=== PATIENT | female | born 1985 | race Caucasian/White ===

== ENCOUNTER 2016-11-25 06:08 | Day surgery (SDC) | payer OTHER, SELFPAY ==
[2016-11-18 09:02] LABS: BASOPHILS 0.1 %; BASOPHILS ABSOLUTE 0.01 10/3/uL (0.0-0.16); EOSINOPHILS 3.3 %; EOSINOPHILS ABSOLUTE 0.22 10/3/uL (0.0-0.53); HEMATOCRIT 36.9 % (36.0-48.0); HEMOGLOBIN 12.3 g/dL (12.0-16.0); IMMATURE GRANULOCYTES 0.1 %; IMMATURE GRANULOCYTES ABSOLUTE 0.01 10/3/uL (0.0-0.11); LYMPHOCYTES 36.7 %; LYMPHOCYTES ABSOLUTE 2.48 10/3/uL (0.67-4.30); MEAN CORPUS HGB CONC 33.3 g/dL (32.0-36.0); MEAN CORPUSCULAR HEMOGLOB 29.4 pg (26.0-34.0); MEAN CORPUSCULAR VOLUME 88.3 fL (80-100); MEAN PLATELET VOLUME 9.9 fL (9.2-13.0); MONOCYTES 4.6 %; MONOCYTES ABSOLUTE 0.31 10/3/uL (0.21-1.20); NEUTROPHILS 55.2 %; NEUTROPHILS ABSOLUTE 3.73 10/3/uL (2.02-8.40); PLATELET COUNT 340 10/3/uL (150-400); RBC DISTRIBUTION WIDTH 13.1 % (12.0-16.0); RED CELL COUNT 4.18 10/6/uL (4.0-5.6); WHITE BLOOD CELLS 6.8 10/3/uL (4.5-10.5)
[2016-11-18 09:04] LABS: MANUAL DIFF NO %
[2016-11-18 09:19] LABS: BUN (BLOOD UREA NITROGEN) 9 MG/DL (6-23); CALCIUM, SERUM 8.9 MG/DL (8.5-10.4); CHLORIDE, SERUM 108 MMOL/L (96-112); CO2 (CARBON DIOXIDE) 29 MMOL/L (24-34); CREATININE 0.64 MG/DL (0.55-1.02); GFR AFRICAN AMERICAN 140 ML/MIN (>=60); GFR NON AFRICAN AMERICAN 121 ML/MIN (>=60); GLUCOSE, SERUM 88 MG/DL (60-99); POTASSIUM, SERUM 4.3 MMOL/L (3.5-5.3); SODIUM, SERUM 144 MMOL/L (135-148)
--- NOTE | ~2016-11-25 | OP ---
Record Of Operation [facility] [address] [place]. [address] NAME: KAMALJIT FALCON : 89 STATUS : [facility]#: [id number] AGE: 31 ADM/REG DATE : 11/25/16 MR#: [id number] REPORT SERV DATE: 11/29/16 DICTATED BY: VERONICA TERAN DATE: 11/29/16 REPORT STATUS : Draft TRANSCRIBED BY: MODJamil DATE: 11/29/16 DATE OF PROCEDURE: 11/25/2016 PREOPERATIVE. DIAGNOSIS: Hyperfunctional left thyroid nodule. POSTOPERATIVE DIAGNOSIS: Hyperfunctional left thyroid nodule. PROCEDURE: Left thyroid lobectomy with recurrent laryngeal nerve monitoring. SURGEON: Veronica Teran M.D. B OPERATOR: Dr. Naina Anderson. INTRAOPERATIVE FINDINGS: Preoperative PTH was 71. ESTIMATED BLOOD LOSS: 15 mL. FLUIDS GIVEN: 800 mL. COMPLICATIONS: None. 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 INDICATION FOR PROCEDURE: 31-year-old female, with bilateral thyroid nodules and signs and symptoms of hyperthyroidism. TSH ranged from 0.1 to 0.2 range and she has had heart racing and heart pounding, and a thyroid uptake study shows a hot nodule on the left hand side on both sides. On the ultrasound have findings that are consistent with adenomas, largest on the left hand side was 3 to 3.2 cm. She has indications for the procedure are described. Described the risks and benefits of the procedure including blood loss, infection, risk of anesthesia, pain and bleeding postoperatively, injury to the recurrent laryngeal nerve or parathyroids, and need for reoperation with possibility of carcinoma. She voiced understanding and signed the consent. The consent was placed on the chart at the time of operation. DESCRIPTION OF PROCEDURE: The patient was wheeled to the OR suite, placed on the OR table in supine position. She was intubated using a Xomed recurrent laryngeal nerve monitoring tube without difficulty. A shoulder roll was placed. Head was placed in a donut. I would inject 0.5 mL in a skin crease two fingerbreadths above her suprasternal notch from [id number]. She was subsequently prepped and draped in standard fashion for thyroidectomy. I would scrub and gown and use loupe magnification headlights for the procedure. Dr. Naina Anderson would assist. We did tap both sides of the neck. Good report on the NIM monitoring unit with doing so and we had visualization of the tube during intubation using a GlideScope. Once, she was scrubbed and gowned, I would make an incision in the area injected down to the subcutaneous tissue. I achieved meticulous hemostasis of the wound edges. I then using a Bovie, I would dissect down through the platysmas and this was divided. I then dissected in a vertical midline fashion Record Of Operation [facility] [address] [facility] [place]. [address] NAME: KAMALJIT FALCON : 89 STATUS : [facility]#: [id number] AGE: 31 ADM/REG DATE : 11/25/16 MR#: [id number] REPORT SERV DATE: 11/29/16 DICTATED BY: VERONICA TERAN DATE: 11/29/16 REPORT STATUS : Draft TRANSCRIBED BY: MODJamil DATE: 11/29/16 down to the level of the median raphe and this was divided from above the thyroid to below some around the suprasternal notch. I then dissected down to the thyroid isthmus, I identified the isthmus and I cut down on the gland itself. There was inferior lobe 3 cm thyroid nodule which was somewhat firm and there was a good deal of inflammation and fibrotic tissue around the gland. We would take sometime elevating the fascia off the gland superiorly and laterally until we were on the capsule of the gland itself. I identified the superior pole, pushed the fascia off laterally, developed a plane between the superior pole and the airway in midline. I would divide the superior pole vessels off the superior pole, placed Niurka, elevated the soft pushed the fascia off laterally as well. I would take a good deal of time coming from the area inferiorly, identified the inferior aspect of the isthmus on the trachea itself, divided the vessels in this area, and I carefully pushed the fascia, there was good inflammation on the gland and took some time to push the fascia off the inferior portion of the lobe, but once we did, we had [place] Coumadin placed superiorly. We elevated the superior pole and finally divided or freed the rest was purulence pole off the tracheoesophageal groove. Once, I was pushing the fascia off in this area, we identified the insertion of the recurrent laryngeal nerve and this did stimulate 1.0 on the NIM monitor. So, at this point, I dissected inferiorly on the nerve itself, I identified the course of the nerve, I was able to divide the fascia between the gland and the nerve itself up to went over the nerve insertion. I was able to free up the inferior pole of the gland and the nodule, and divided the vessels of the inferior thyroid vessels in this area. I identified the superior parathyroid and this was lateral to the nerve insertion inferiorly, we stayed on the gland itself, I was able to skeletonize the gland under the trachea and skeletonized the trachea, it comes superiorly up to the nerve insertion site and carefully we worked way through this area and was able to divide the gland off the trachea laterally, and subsequently divided in midline using a Harmonic Scalpel, and skeletonized the trachea in this area as well. 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 We achieved meticulous hemostasis in the wound bed. I did have the anesthesiologist performed Valsalva and there was no further bleeding. We irrigated copiously and dried this up and then went about closure via multilayered closure. The straps were closed in midline using simple interrupted 3-0 Vicryl. The platysma were be closed using buried simple interrupted 3-0 Vicryl. The skin was closed using a subcuticular 4-0 Vicryl and Mastisol and Steri-Strips were placed. A clean dressing was placed around this and at this point, the procedure is complete. Her nerve did stimulate at the end of the case. I identified the superior pole, the inferior parathyroid down below the gland itself. She was subsequently awoken, extubated, stably transferred to the recovery area. She has nice voiced in recovery. There were no complications. Estimated blood loss for the procedure was 15 mL. CRYSTAL/MICHELLE Veronica Teran M.D. / [id number] Record Of Operation [address] [facility] [place]. [address] NAME: KAMALJIT FALCON : 89 STATUS : [facility] PAT#: [id number] AGE: 31 ADM/REG DATE : 11/25/16 MR#: [id number] REPORT SERV DATE: 11/29/16 DICTATED BY: VERONICA TERAN DATE: 11/29/16 REPORT STATUS : Draft TRANSCRIBED BY: MICHELLE DATE: 11/29/16 CC: Veronica Teran M.D.
[~2016-11-25 06:08] MED LIST: ACET500CAP PO; ADVIL PO; AUG500 PO; LEVSINTAB PO; PR25 PO; PRILO PO; ZOFRAN4 PO
[2016-11-25 07:22] LABS: PTH TAT 0 Hrs 21 Mins
== END 2016-11-25 16:04 | disposition home or self-care (01) ==
LOC: SDC 06:08
PROVIDERS: Otolaryngology
PROC: 0GTG0ZZ Resection of Left Thyroid Gland Lobe, Open Approach (ICD-10-PCS; principal; 2016-11-25 07:15)
DX: C73 Malignant neoplasm of thyroid gland (principal); E04.1 Nontoxic single thyroid nodule; E05.80 Other thyrotoxicosis without thyrotoxic crisis or storm; K21.9 Gastro-esophageal reflux disease without esophagitis; K58.9 Irritable bowel syndrome, unspecified; F41.9 Anxiety disorder, unspecified; Z79.899 Other long term (current) drug therapy; Z90.49 Acquired absence of other specified parts of digestive tract; Z98.890 Other specified postprocedural states; Z87.891 Personal history of nicotine dependence; D64.9 Anemia, unspecified
CPT/HCPCS: 71020; 80048; 83970; 84703; 85025; 85730; 88307; 88311; 88331; A9270-GY; J0330; J0690; J2250; J2270; J2405; J2710; J3010